=== PATIENT | male | born 1960 | race American Indian/Alaskan Native ===

== ENCOUNTER 2021-07-30 08:41 | Emergency (ER) | payer OTHER ==
[2021-07-30] MEDS ORDERED: ASPIRIN 325 MG TAB PO ONE (08:44)
--- NOTE | 2021-07-30 09:26 | XRay Report ---
CHEST 2 VIEWS INDICATION / CLINICAL INFORMATION: chest pain. COMPARISON: None available. FINDINGS: SUPPORT DEVICES: None. HEART / MEDIASTINUM: No significant abnormality. LUNGS / PLEURA: No significant pulmonary or pleural abnormality. No pneumothorax. ADDITIONAL FINDINGS: No significant additional findings. IMPRESSION: 1. No acute findings. Signer Name: Warner Tadeo MD Signed: 07/30/2021 9:21 AM Workstation Name: [id number]
[2021-07-30 09:36] LABS: Basophils % (Auto) 0.2 % (0.0-1.8); Eosinophils # (Auto) 0.1 K/mm3 (0.0-0.4); Eosinophils % (Auto) 0.8 % (0.0-4.3); Hematocrit 42.6 % (35.5-45.6); Hemoglobin 13.7 gm/dl (11.8-15.2); Lymphocytes # (Auto) 1.7 K/mm3 (1.2-5.4); Lymphocytes % (Auto) 22.4 % (13.4-35.0); Mean Corpuscular HGB Conc 32 % (32-34); Mean Corpuscular Volume 83 fl (84-94); Monocytes # (Auto) 0.4 K/mm3 (0.0-0.8); Monocytes % (Auto) 5.1 % (0.0-7.3); Platelet Count 444 K/mm3 (140-440); Red Blood Count 5.13 M/mm3 (3.65-5.03); Red Cell Distribution Width 14.7 % (13.2-15.2)
--- NOTE | 2021-07-30 09:47 | Emergency Department Report ---
ED Chest Pain HPI - General Chief Complaint: Chest Pain Stated Complaint: CHEST PAIN Time Seen by Provider: 07/30/21 09:20 Source: patient Mode of arrival: Ambulatory Limitations: No Limitations - History of Present Illness Initial Comments: 61-year-old -Vietnamese male presents to the emergency department with a complaint of some generalized chest pressure and intermittent left forearm squeezing pain that started upon waking around 3 AM. The patient took 2 baby aspirin. At the time of my examination the intensity of the chest pressure has decreased and the patient still has this intermittent forearm squeezing pain. He also says that when he ambulates he gets mild sharp left-sided chest pains. He denies any fever, shortness of breath, lower extremity swelling, nausea, vomiting, back pain or diaphoresis. He has a history of hypertension and use-[id number] diabetes. He denies any tobacco or illicit drug use. No recent travel or sick contacts at home. He denies any family history of early [place]. His primary care physician is Dr. Kerwin Torres. He does not have a surgical dressing maker. The patient had a negative stress test about 3 years ago. - Related Data Home Medications Medication Instructions Recorded Confirmed Last Taken Ammonium Lactate [Lac-Hydrin] 1 applicatio TP BID 12/22/13 07/30/21 11/12/15 Canagliflozin (Nf) [Invokana] 100 mg PO QDAY 12/22/13 07/30/21 11/12/15 Losartan/Hydrochlorothiazide 1 each PO QDAY 12/22/13 07/30/21 11/12/15 [Hyzaar 100-25 Tablet] amLODIPine [Norvasc] 10 mg PO DAILY 12/22/13 07/30/21 11/12/15 Previous Rx's Medication Instructions Recorded Last Taken Type Pantoprazole [Protonix] 40 mg PO BID #60 tablet 12/24/13 11/12/15 Rx Allergies Allergy/AdvReac Type Severity Reaction Status Date / Time metformin AdvReac Diarrhea Verified 07/30/21 09:21 Heart Score - HEART Score History: Slightly suspicious EKG: Normal Age: 45-65 Risk factors: 1-2 risk factors Troponin: < normal limit HEART Score: 2 - EKG Read Time Time EKG Completed: 08:50 EKG Read Time: 08:52 ED Review of Systems ROS: Stated complaint: CHEST PAIN Other details as noted in HPI Comment: All other systems reviewed and negative Constitutional: denies: chills, fever Eyes: denies: eye pain, vision change ENT: denies: ear pain, throat pain Respiratory: denies: cough, shortness of breath Cardiovascular: chest pain. denies: palpitations Gastrointestinal: denies: abdominal pain, vomiting Genitourinary: denies: dysuria, discharge Musculoskeletal: myalgia. denies: joint swelling Skin: denies: rash, lesions Neurological: denies: headache, weakness ED Past Medical Hx - Past Medical History Hx Hypertension: Yes Hx Diabetes: Yes - Surgical History Hx Appendectomy: Yes - Social History Smoking Status: Never Smoker - Medications Home Medications: Home Medications Medication Instructions Recorded Confirmed Last Taken Type Ammonium Lactate [Lac-Hydrin] 1 applicatio TP BID 12/22/13 07/30/21 11/12/15 History Canagliflozin (Nf) [Invokana] 100 mg PO QDAY 12/22/13 07/30/21 11/12/15 History Losartan/Hydrochlorothiazide 1 each PO QDAY 12/22/13 07/30/21 11/12/15 History [Hyzaar 100-25 Tablet] amLODIPine [Norvasc] 10 mg PO DAILY 12/22/13 07/30/21 11/12/15 History Pantoprazole [Protonix] 40 mg PO BID #60 tablet 12/24/13 07/30/21 11/12/15 Rx ED Physical Exam - General Limitations: No Limitations - Other Other exam information: GENERAL: The patient is well-developed well-nourished. HENT: Normocephalic. Atraumatic. Patient has moist mucous membranes. EYES: Extraocular motions are intact. NECK: Supple. Trachea is midline. CHEST/LUNGS: Clear to auscultation. There is no respiratory distress noted. HEART/CARDIOVASCULAR: Regular. There is no tachycardia. There is no murmur. ABDOMEN: Abdomen is soft, nontender. Patient has normal bowel sounds. SKIN: Skin is warm and dry. NEURO: The patient is awake, alert, and oriented. The patient is cooperative. The patient has no focal neurologic deficits. Normal speech. MUSCULOSKELETAL: There is no tenderness or deformity. There is no limitation r [place] of motion. Radial pulse +2/4 and capillary refill less than 2 seconds to the affected left upper extremity. ED Course Vital Signs 12/07/21 12/07/21 12/07/21 08:42 08:43 09:57 Temperature 98.2 F 98.2 F Pulse Rate 77 75 Respiratory 18 16 Rate Blood Pressure 156/86 128/77 O2 Sat by Pulse 98 100 Oximetry FERMÍN score - Ferm[place] Score Age > 65: (0) No Aspirin use within the Past 7 Days: (0) No 3 or more CAD Risk Factors: (0) No 2 or more Angina events in past 24 hrs: (1) Yes Known CAD with more than 50% Stenosis: (0) No Elevated Cardiac Markers: (0) No ST Deviation Greater than 0.5mm: (0) No FERMÍN Score: 1 ED Medical Decision Making - Lab Data Result diagrams: 07/30/21 09:04 07/30/21 09:04 Lab Results 07/30/21 07/30/21 07/30/21 Range/Units 09:04 09:04 12:45 WBC 7.8 (4.5-11.0) K/mm3 RBC 5.13 H (3.65-5.03) M/mm3 Hgb 13.7 (11.8-15.2) gm/dl Hct 42.6 (35.5-45.6) % MCV 83 L (84-94) fl MCH 27 L (28-32) pg MCHC 32 (32-34) % RDW 14.7 (13.2-15.2) % Plt Count 444 H (140-440) K/mm3 Lymph % (Auto) 22.4 (13.4-35.0) % [place] % (Auto) 5.1 (0.0-7.3) % Eos % (Auto) 0.8 (0.0-4.3) % Baso % (Auto) 0.2 (0.0-1.8) % Lymph # (Auto) 1.7 (1.2-5.4) K/mm3 [place] # (Auto) 0.4 (0.0-0.8) K/mm3 Eos # (Auto) 0.1 (0.0-0.4) K/mm3 Baso # (Auto) 0.0 (0.0-0.1) K/mm3 Seg Neutrophils % 71.5 H (40.0-70.0) % Seg Neutrophils # 5.6 (1.8-7.7) K/mm3 Sodium 138 (137-145) mmol/L Potassium 3.7 (3.6-5.0) mmol/L Chloride 99.2 (98-107) mmol/L Carbon Dioxide 23 (22-30) mmol/L Anion Gap 20 mmol/L BUN 19 (9-20) mg/dL Creatinine 0.8 (0.8-1.3) mg/dL Estimated GFR > 60 ml/min BUN/Creatinine Ratio 24 % Glucose 167 H (75-100) mg/dL Calcium 9.4 (8.4-10.2) mg/dL Total Bilirubin 0.40 (0.1-1.2) mg/dL AST 12 (5-40) units/L ALT 11 (7-56) units/L Alkaline Phosphatase 82 (35-129) units/L Troponin T < 0.010 < 0.010 (0.00-0.029) ng/mL Total Protein 8.0 (6.3-8.2) g/dL Albumin 4.4 (3.9-5) g/dL Albumin/Globulin Ratio 1.2 % - EKG Data -: EKG Interpreted by Me EKG shows normal: sinus rhythm, axis, intervals, QRS complexes (LVH), ST-T waves Rate: normal - EKG Data When compared to previous EKG there are: no significant change Interpretation: unchanged when compared t (12/22/13) - Radiology Data Radiology results: image reviewed interpreted by me: Chest x-ray does not show any acute process. There are no pleural effusions, obvious pneumonia and there is no pneumothorax. No widened mediastinum. - Medical Decision Making This patient presents to the emergency department with a complaint of some pressure to the left forearm, some generalized chest pressure, and intermittent left-sided sharp chest pains. Heart and lung sounds are normal to auscultation and the patient does not appear in any respiratory or acute distress. EKG does not have any morphology consistent with ST elevation myocardial infarction. Chest x-ray does not show any pneumonia, pleural effusions, pneumothorax, widened mediastinum, or any other acute process. Patient's labs have been unremarkable including CBC, metabolic panel and negative troponins x2. He was given a dose of Toradol. He was reevaluated multiple times over multiple hours and appears improved and in fact prior to discharge is asymptomatic. Patient is low on the heart and FERMÍN score. He does not have any risk factors for thromboembolic disease. Vital signs reassuring including being afebrile and no hypoxia. For all these reasons the patient appears safe for discharge home at this time. His contact information has been sent over to the [facility] and vascular center, and someone from their office should be contacting him shortly for close outpatient follow[facility]up [facility]. He will return to the emergency department with any worsening of his symptoms or with any acute distress. Critical Care Time: No Critical care attestation.: If time is entered above; I have spent that time in minutes in the direct care of this critically ill patient, excluding procedure time. ED Disposition Clinical Impression: Chest pain Qualifiers: Chest pain type: unspecified Qualified Code(s): R07.9 - Chest pain, unspecified Hypertension Qualifiers: Hypertension type: primary hypertension Qualified Code(s): I10 - Essential (primary) hypertension Disposition: 01 HOME / SELF CARE / HOMELESS Is pt being admited?: No Condition: Stable Instructions: Nonspecific Chest Pain, Adult, Managing Your Hypertension, Hypertension (ED) Additional Instructions: Please follow-up with your primary care physician in the next few days. I have sent your contact information over to the [facility], and someone from their office should be contacting you shortly for close outpatient follow-up. Just in case, I am giving you a referral for one of their surgical dressing maker, Dr. Allan. Try to stay away from foods that are high in salt and caffeinated products. Keep a blood pressure log. Return to the emergency department with any worsening of your symptoms, new or concerning symptoms not addressed during this current emergency department visit, or with any acute distress. Referrals: PRIMARY MD ALANNA [Primary Care Provider] - 2-3 Days CORAL ALLAN MD [Staff Physician] - 2-3 Days Time of Disposition: 13:54
[2021-07-30 09:52] LABS: Alanine Aminotransferase 11 units/L (7-56); Albumin 4.4 g/dL (3.9-5); BUN/Creatinine Ratio 24; Blood Urea Nitrogen 19 mg/dL (9-20); Calcium 9.4 mg/dL (8.4-10.2); Hemolysis Index 15
[2021-07-30 10:06] VITALS: BP 128/77
[2021-07-30] MEDS ORDERED: KETOROLAC 30 MG/1 ML INJ IM ONE (11:21)
--- NOTE | 2021-08-01 10:14 | Electrocardiograph Report ---
[facility] Test Date: 2021-07-30 Test Time: 08:50:43 Pat Name: EMERITA PALMER Department: Room: Gender: M Electronics Assembler: JUAN : [id number] Requested By: LEXA PORTER Order Number: [id number] Reading MD: Annamarie Arreguin Measurements Intervals [place] Rate: 73 P: -10 VT: 145 QRS: 13 QRSD: 91 T: 29 QT: 380 QTc: 420 Interpretive Statements Sinus rhythm Consider left ventricular hypertrophy No previous ECG available for comparison Electronically Signed On 08-01-2021 10:13:42 EST by Annamarie Arreguin
== END 2021-07-30 14:03 | disposition home or self-care (01) ==
LOC: ED 08:41
DX: R07.9 Chest pain, unspecified (principal); I10 Essential (primary) hypertension; E11.8 Type 2 diabetes mellitus with unspecified complications; Z98.890 Other specified postprocedural states; Z88.8 Allergy status to other drugs, medicaments and biological substances
CPT/HCPCS: 36415; 71046; 80053; 84484; 85025; 93005; 96372; 99284; J1885